=== PATIENT | female | born 1970 | race Caucasian/White ===

== ENCOUNTER 2018-01-11 00:33 | Emergency (ER) | payer MEDICAID, OTHER ==
[~2018-01-11] VITALS: Ht 162.6 cm; Wt 95.7 kg
[2018-01-11 05:30] VITALS: BP 126/72
== END 2018-01-11 06:50 | disposition home or self-care (01) ==
LOC: ER 00:35
DX: S13.4XXA Sprain of ligaments of cervical spine, initial encounter (principal); R51 Headache; M62.838 Other muscle spasm; M25.571 Pain in right ankle and joints of right foot; Z98.1 Arthrodesis status; Z88.1 Allergy status to other antibiotic agents; X58.XXXA Exposure to other specified factors, initial encounter; Y92.89 Other specified places as the place of occurrence of the external cause; Y93.89 Activity, other specified; Y99.8 Other external cause status
CPT/HCPCS: 70450; 72125; 73610

== ENCOUNTER 2023-02-09 10:10 | Emergency (ER) | payer OTHER, MEDICAID ==
[~2023-02-09] VITALS: Ht 162.6 cm; Wt 85.7 kg
[2023-02-09 10:21] VITALS: BP 148/79
[2023-02-09] MEDS ORDERED: ACETAMINOPHEN 500 MG TAB PO ONE ×2 (11:15→11:30)
[2023-02-09] MEDS ORDERED: KETOROLAC TROMETH 30 MG/ML 1ML VIAL IM ONE (11:30)
[2023-02-09] MEDS ORDERED: ACET1CAP14 PO (11:31)
== END 2023-02-09 11:46 | disposition home or self-care (01) ==
LOC: ER 10:10
DX: M25.521 Pain in right elbow (principal); Z88.6 Allergy status to analgesic agent